=== PATIENT | female | born 1970 | race African-American/Black ===

== ENCOUNTER 2020-06-15 09:50 | Emergency (ER) | payer OTHER, SELFPAY ==
[2020-06-15] MEDS ORDERED: Ketorolac Tromethamine 30 MG/ML VIAL ONE (10:35)
[2020-06-15] MEDS ORDERED: Sodium Chloride 0.9% 1,000 ML ONE (10:35)
[2020-06-15 10:45] LABS: Bilirubin Negative (Negative); Blood, Urine Negative (Negative); Glucose, Urine (Dipstick) Negative (Negative); Ketone, Urine Trace mg/dL (Negative); Leukocyte Moderate (Negative); Nitrite Negative (Negative); Protein, Urine (Dipstick) Negative (Neg-Trace); Urobilinogen 0.2 mg/dL (Less than 2); pH, Urine 5.5 (5.0-9.0)
[2020-06-15 11:02] LABS: Bacteria/HPF Rare-Few HPF (None Seen); Clarity SL HAZY (Clear); RBC/HPF 0-3 HPF (0-3); Squamous Epithelial 0-3 HPF (0-3)
[2020-06-15 11:03] LABS: ALT (SGPT) 24 U/L (8-55); AST (SGOT) 28 U/L (5-34); Albumin 3.9 g/dL (3.5-5.0); Alkaline Phosphatase 100 U/L (40-110); Anion Gap 12 mmol/L (10-20); BUN (Urea Nitrogen) 5 mg/dL (7.0-18.7); Bilirubin, Total 0.4 mg/dL (0.2-1.2); Calc. Creatinine Clearance 0 mL/min (70-130); Calcium 9.8 mg/dL (7.8-10.44); Carbon Dioxide 23 mmol/L (22-29); Chloride 105 mmol/L (98-107); Estimated GFR-MDRD Greater than 90; Globulin 4.1 g/dL (2.4-3.5); Glucose 103 mg/dL (70-105); Potassium 4.3 mmol/L (3.5-5.1); Sodium 136 mmol/L (136-145)
[2020-06-15 11:05] LABS: #Basophils 0.4 thou/uL (0.0-0.2); #Eosinphils 0.2 thou/uL (0.0-0.7); #Lymphocytes 3.1 thou/uL (1.20-3.40); #Monocytes 0.7 thou/uL (0.11-0.59); #Neutrophils 3.7 thou/uL (1.40-6.50); %Basophils 4.8 % (0.0-1.0); %Eosinophils 2.1 % (0.0-10.0); %Lymphocytes 38.7 % (21.0-51.0); %Monocytes 8.9 % (0.0-10.0); %Neutrophils 45.5 % (42.0-75.0); Hemoglobin 13.5 g/dL (12.0-16.0); Mean Corpuscular HGB CONC 29.6 g/dL (32.0-36.0); Mean Corpuscular Hemoglobin 24.5 pg (27.0-31.0); Mean Platelet Volume 9.2 fL (7.4-10.4); Platelet Count 371 thou/uL (130-400); RBC Distribution Width 12.1 % (11.5-14.5); Red Blood Cell (RBC) Count 5.51 mill/uL (4.20-5.40); White Blood Cell (WBC) Count 8.1 thou/uL (4.8-10.8)
[2020-06-15 11:06] LABS: Pregnancy Test - Urine (BHCG) Negative (Negative); Pregu Control Background? CLEAR/WHITE (CLR/WHITE); Pregu Control Bar Appear? YES (CONTROL BAR)
--- NOTE | 2020-06-15 11:38 | CT ---
ABDOMEN AND PELVIC CT SCAN WITHOUT IV CONTRAST: HISTORY: Right-sided abdominal pain. FINDINGS: The lung bases are clear. Status post cholecystectomy. Borderline fatty change in the liver. Pancr eas, spleen, and common bile duct are unremarkable. 1.1 cm right renal adenoma and 1 cm left adrenal adenoma. No renal calculi or acute obstruction. Normal-appearing appendix. Small fat-containin g umbilical hernia. Bilateral pelvic cysts measuring 5.2 cm on the right and 4.2 cm on the left, pro bably bilateral ovarian cysts. No large or small bowel obstruction. No abscess or abnormal fluid co llection. No adenopathy. IMPRESSION: Bilateral ovarian cysts. Small bilateral adrenal adenomas. No renal calculus or obstruction. No rmal-appearing appendix. POS: OFF
[2020-06-15 11:55] LABS: Wet Prep Clue Cells Clue Cells Absent (None Seen); Wet Prep Trichomonas Trichomonas Absent (None Seen)
[2020-06-17 21:14] LABS: Chlamydia by PCR Not Detected (NotDetected); GC by PCR Not Detected (NotDetected)
== END 2020-06-15 12:09 | disposition home or self-care (01) ==
LOC: NAV ERS 09:50
DX: N76.0 Acute vaginitis (principal); B37.3 Candidiasis of vulva and vagina; F17.210 Nicotine dependence, cigarettes, uncomplicated
CPT/HCPCS: 74176; 80053; 81003; 81015; 81025; 83605; 85025; 87210; 87480; 87491; 87510; 87591; 87660; 96374; J1885; J7050

== ENCOUNTER 2021-01-08 20:07 | Emergency (ER) | payer MEDICAID, OTHER, SELFPAY ==
[2021-01-08] MEDS ORDERED: Famotidine/PF 20 mg/2ml Vial ONE (20:16)
[2021-01-08] MEDS ORDERED: EPINEPHrine 1 MG/ML AMP ONE (20:16)
[2021-01-08] MEDS ORDERED: methylPREDNISolone Sod Succ/PF 125 MG/2 ML VIAL ONE (20:20)
[2021-01-08] MEDS ORDERED: Sodium Chloride 0.9% 1,000 ML ONE (22:21)
== END 2021-01-08 22:10 | disposition home or self-care (01) ==
LOC: NAV ERS 20:07
DX: T78.40XA Allergy, unspecified, initial encounter (principal); F41.9 Anxiety disorder, unspecified; E03.9 Hypothyroidism, unspecified; I10 Essential (primary) hypertension; F17.210 Nicotine dependence, cigarettes, uncomplicated
CPT/HCPCS: 93005; 96374; 96375; J0171; J2930; J7050; S0028